=== PATIENT | male | born 1980 | race Caucasian/White ===

== ENCOUNTER 2018-05-28 13:41 | Emergency (ER) | payer OTHER ==
[2018-05-28 13:50] VITALS: BP 152/100
--- NOTE | 2018-05-28 14:09 | ED Physician Documentation ---
PD HPI UPPER EXT INJURY - Stated complaint Stated Complaint: L THUMB INJ - Chief complaint Chief Complaint: Ext Problem - History obtained from History obtained from: Patient - History of Present Illness Location: Left, Finger (thumb) Type of injury: Blunt / blow Where injury occurred: Other (playing football) Timing - onset: Last night Worsened by: Moving, Palpating Associated symptoms: Swelling. No: Weakness, Numbness Similar symptoms before: Has not had sx before - Additonal information Additional information: The patient is a 37-year-old male who jammed his left thumb while playing football last night. He denies any other injuries. He is right-hand dominant. Review of Systems Constitutional: denies: Fever Respiratory: denies: Dyspnea GI: denies: Nausea, Vomiting Skin: denies: Abrasion (s), Laceration (s) Musculoskeletal: reports: Extremity pain (left thumb). denies: Neck pain, Back pain Neurologic: denies: Focal weakness, Numbness PD PAST MEDICAL HISTORY - Past Medical History Past Medical History: No Cardiovascular: None Respiratory: Other Endocrine/Autoimmune: None GI: None : None HEENT: None Psych: None Musculoskeletal: Other Derm: None - Past Surgical History Past Surgical History: Yes Ortho: Arthroscopic surgery - Present Medications Home Medications: Ambulatory Orders Medication Instructions Recorded Confirmed Ibuprofen 600 mg PO ONCE 05/28/18 05/28/18 - Allergies Allergies/Adverse Reactions: Allergies Allergy/AdvReac Type Severity Reaction Status Date / Time No Known Drug Allergies Allergy Verified 04/05/13 19:06 - Social History Does the pt smoke?: No Smoking Status: Never smoker Does the pt drink ETOH?: Yes Does the pt have substance abuse?: No - Immunizations Immunizations are current?: Yes PD ED PE NORMAL - Vitals Vital signs reviewed: Yes (hypertensive) - General General: Alert and oriented X 3, Well developed/nourished - HEENT HEENT: Atraumatic - Respiratory Respiratory: No respiratory distress - Derm Derm: No rash - Extremities Extremities: Other (Swelling and tenderness to palpation at the base of the left thumb, particularly at the MCP joint and the thenar eminence. Distal neurovascular is intact. There is no break in the integument.) - Neuro Neuro: Alert and oriented X 3, No motor deficit, No sensory deficit Results - Vitals Vitals: Vital Signs - 24 hr 05/28/18 13:47 Temperature 36.5 C Heart Rate 79 Respiratory 18 Rate Blood Pressure 152/100 H O2 Saturation 96 Oxygen O2 Source Room air - Rads (name of study) left thumb Radiology: Prelim report reviewed, EMP read contemporaneously, See rad report (First proximal phalangeal avulsion fracture (gamekeeper's thumb).) Procedures - Splint (location) left thumb Splint applied by: Tech Type of splint: Prefab velcro wrist (Velcro thumb spica) Other: Patient tolerated well, No complications, Neurovascular intact PD MEDICAL DECISION MAKING - ED course Complexity details: reviewed results, re-evaluated patient, considered differential, d/w patient ED course: The patient's presentation is significant for gamekeeper's thumb involving the proximal portion of the first phalanx of the left thumb. Treatment in the emergency department included application of a Velcro thumb spica splint. I discussed with him the expected course of injury, symptomatic treatment and outpatient follow-up, as well as potentially worrisome signs or symptoms that should prompt reevaluation in the emergency department. Departure - Departure Disposition: 01 Home, Self Care Clinical Impression: Gamekeeper's thumb of left hand Qualifiers: Encounter type: initial encounter Qualified Code(s): S53.32XA - Traumatic rupture of left ulnar collateral ligament, initial encounter Condition: Stable Instructions: ED Fx Thumb Follow-Up: Michael Gatica MD [Primary Care Provider] - Comments: Keep your left hand elevated as much the time as possible. Use the thumb spica splint, which you can remove when showering. You can use ibuprofen, up to 800 mg 3 times daily for anti-inflammatory effect. Let pain be your guide to activity level. Follow-up with your primary physician within 1 week. Call to schedule appointment. Return to the emergency department if you develop markedly increasing pain or swelling, or otherwise worsening symptoms. Discharge Date/Time: 05/28/18 15:37
--- NOTE | 2018-05-28 15:21 | XRAY Report ---
Reason: left thumb injury Procedure Date: 05/28/2018 Accession Number: [id number] / [id number] Procedure: XR - Finger(s) LT CPT Code: FULL RESULT: EXAM: LEFT FIRST DIGIT RADIOGRAPHY EXAM DATE: 05/28/2018 02:45 PM. CLINICAL HISTORY: Trauma, pain. COMPARISON: None. TECHNIQUE: 3 views. FINDINGS: Bones: Small fracture fragment with adjacent donor site in the ulnar corner of the base of first proximal phalanx. Otherwise unremarkable. Joints: Normal. No subluxations. Soft Tissues: Soft tissue swelling. IMPRESSION: First proximal phalangeal avulsion fracture (gamekeepers thumb). [facility]
== END 2018-05-28 15:37 | disposition home or self-care (01) ==
LOC: ED 13:41
DX: S63.418A Traumatic rupture of collateral ligament of other finger at metacarpophalangeal and interphalangeal joint, initial encounter (principal); Y93.61 Activity, american tackle football
CPT/HCPCS: 29125; 73140; 99283

== ENCOUNTER 2018-06-25 07:41 | Outpatient (CLI) | payer OTHER ==
--- NOTE | 2018-06-25 13:29 | MRI Report ---
Reason: TRAUMATIC RUPTURE OF UNSPECIFIED ULNAR COLLATERAL Procedure Date: 06/25/2018 Accession Number: [id number] / [id number] Procedure: MRI - Finger(s) LT W/O CPT Code: 84195 FULL RESULT: EXAM: LEFT Thumb MRI Without Contrast EXAM DATE: 06/25/2018 08:43 AM. CLINICAL HISTORY: Traumatic rupture of unspecified ulnar collateral. COMPARISON: Radiographs 05/28/2018. TECHNIQUE: Multiplanar, multisequence T1-weighted and fluid-sensitive sequences of the thumb without contrast. Other: None. FINDINGS: Bones: Contusion versus subtle impaction fracture at the volar and radial aspect first metacarpal head. Subtle bone marrow edema at the ulnar aspect first proximal phalanx, likely reactive. Cartilage: Shallow partial-thickness cartilage loss first metacarpophalangeal joint. Shallow partial-thickness loss and cystic changes partially visualized at the first carpometacarpal joint. Ligaments: Moderate thickening and mild edema in the ulnar collateral ligament first metacarpophalangeal joint. Deep partial-thickness tear at the distal insertion. Some fibers appear intact. Mild edema at the radial collateral ligament first metacarpophalangeal joint. Possible subtle undersurface tear at the distal insertion. Tendons: The flexor and extensor tendons are intact. Subtle edema deep to the insertion extensor pollicis brevis tendon at the proximal phalanx base. The adductor pollicis insertion is mildly edematous although intact. Musculature: No fatty atrophy. Minimal edema in the musculature adjacent to the first metacarpophalangeal joint. Other: Minimal joint effusion first metacarpophalangeal joint. Mild subcutaneous edema over the dorsal and ulnar aspect first metacarpophalangeal joint. IMPRESSION: 1. Moderate strain and high-grade partial-thickness tearing ulnar collateral ligament of the first metacarpophalangeal joint. No full-thickness disruption. 2. Mild reactive edema versus strain at the adductor aponeurosis. 3. Mild reactive edema versus strain at the radial collateral ligament of the first metacarpophalangeal joint. 4. Minimal joint effusion at the first metacarpophalangeal joint. 5. Reactive edema versus strain or partial-thickness tearing at the insertion extensor pollicis brevis tendon. 6. Bone contusion versus subtle impaction fracture at the radial aspect first metacarpal head. [facility] MUSCULOSKELETAL RADIOLOGY SECTION
== END 2018-06-25 07:42 | disposition home or self-care (01) ==
LOC: DI 07:41
PROVIDERS: ATTEND Orthopaedic Surgery
DX: S53.32XA Traumatic rupture of left ulnar collateral ligament, initial encounter (principal); S63.642A Sprain of metacarpophalangeal joint of left thumb, initial encounter; S66.912A Strain of unspecified muscle, fascia and tendon at wrist and hand level, left hand, initial encounter; S60.012A Contusion of left thumb without damage to nail, initial encounter

== ENCOUNTER 2020-10-11 10:17 | Outpatient (CLI) | payer OTHER ==
[2020-10-13 21:09] VITALS: BP 140/104
--- NOTE | 2020-10-13 21:09 | SLEEP CARE CONSULTATION ---
Information from patient questionnaire entered by Ana Wilson. I have reviewed and concur with the information entered by Ana Wilson. This document represents the service I personally performed and the decisions made by me, Karen White MD, [facility]. History of Present Illness Service Date and Time: 10/11/2020 1017 Reason for Visit: New patient, Previously diagnosed sleep apnea (moderate - AHI - 23.3), sleep apnea on CPAP therapy ([facility]) Chief Complaint: reports: Other (sleep study) Date of Onset: 15 years Usual bedtime: 9:30 pm Time it takes to fall asleep: 20 minutes Snores at night: Yes Observed to quit breathing while asleep: Yes Sleeps alone due to snoring: No Number of times waking at night: 1 Reasons for waking at night: reports: Snoring, Bathroom Toss, Turn, or Twitch while sleeping: Yes Recalls having dreams: No Usually gets out of bed at: 4:30 am Feels refreshed in the morning: Yes Morning headache: No Sleepy or fatigued during the day: Yes Ever fallen asleep while driving: No Takes day naps: No Dreams during day naps: No Prior sleep studies: Yes Year and Where: 2012 - [facility] Type of Sleep Study: Polysomnography Additional HPI information: I had the pleasure of seeing Mr. Ragland today regarding obstructive sleep apnea-hypopnea. As you know, he is a 39 year old gentleman who was diagnosed with the sleep-disordered breathing at the [facility] in 2012. The AHI was 23.3. He was prescribed a CPAP device set at 11 cmH2O. He uses the Respironics DreamStation auto device every night and all night. The compliance data show usage in 29 out of the past 30 nights, averaging 5.1 hours a night. The residual AHI is 3.3 and average time in large leak per day is 23 minutes. He wears a ResMed full face mask. He gets his supplies from [facility] in [place]. He finds the treatment very beneficial. [place] Sleepiness Scale score is 10. - Parasomnia Symptoms Ever been unable to move upon waking from sleep: No Ever felt weak in the knees when startled or emotional: No Bothered by creepy, crawly, restless sensations in legs: No Problems with memory or concentration: Yes CPAP Compliance Data - Data Reviewed with Patient Average duration of nightly device use: 5 hr 7 min Compliance rate %: 66.7 (last 30)(55 for 180 days) Current pressure setting (cmH2O): 11 Humidity settin Heated hose settin Average residual AHI: 3.3 Average large leak: 23 min 8 sec Subjective Initial [place] Sleepiness Scale score: 10 (in 2020) Past Medical History Past Medical History: reports: Hypertension Social History 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 Patient is and lives in [place]. Have you smoked in the past 12 months: No Alcohol use: Yes Alcohol amount and frequency: 2 drinks 3-4 times a week Caffeine use: Yes Caffeine amount and frequency: 3-4 cups of coffee Family History Family history of sleep disordered breathing: No Allergies and Home Medications Drug allergies reviewed: Yes Home medication list reviewed: Yes (HCTZ) Review of Systems Cardiovascular: reports: high blood pressure Respiratory: denies: shortness of breath, wheeze, sputum production, chronic cough, other Gastrointestinal: denies: heartburn, difficulty swallowing, nausea, vomitting, diarrhea, abdominal pain, other Urinary: denies: incontinence, frequency, urgency, impotence, other Neurological: denies: headaches, seizure, head trauma, disorientation, speech dysfunction, gait or balance problems, fainting or unconsciousness, other Psychiatric: denies: Attention Deficit Hyperactivity, anxiety, depression, mood disorder, claustrophobia, other Ear/Nose/Throat: denies: nasal congestion, sinus problems, nose bleeds, dry mouth/throat, hoarseness, injury to nose, tonsillectomy, wisdom teeth removed, other Endocrine: denies: thyroid disease, history of goiter, sluggishness, too hot or cold, excessive thirst, increased appetite, increased urination, unexplained weakness, other Musculoskeletal: denies: joint pain, neck pain, back pain, joint swelling, muscle pain or cramping, mobility problems, other Immunologic: denies: sneezing, rash, itching, allergies to food or environment, other Physical Exam Blood Pressure: 140/104 Heart Rate: 65 O2 Saturation: 100 Height: 6 ft 2 in Weight: 255 lb Body Mass Index: 32.7 BMI Classification: Obese Neck circumference: 17.5 Impression and Plan IMPRESSION: 1. Obstructive Sleep Apnea-Hypopnea Syndrome, moderate, as previously diagnosed. He has good treatment compliance. The current pressure setting appears effective and comfortable. I will prescribe him more supplies through [facility] in [place]. I showed him newer full face masks. Because he still snores occasionally at home, I will raise the pressure a little. Plan: 1. Prescription made for CPAP supplies. 2. Set the Respironics DreamStation as autoCPAP with pressure range 9 14 cmH 2O. 3. Avoid alcohol, sedative and muscle relaxant around bedtime. 4. Attempt to lose weight. 5. Return for follow up in a year or earlier if there is any problem. Follow up recommended for: Weight management Visit Type: In Office Time Spent with Patient (minutes): 15 Provider Statement: I spent 100% of the Face to Face Visit with the patient with greater than 50% spent counseling the patient and coordination of care.
== END 2020-10-11 10:18 | disposition home or self-care (01) ==
LOC: SC 10:17
PROVIDERS: ATTEND Internal Medicine Pulmonary Disease
DX: G47.33 Obstructive sleep apnea (adult) (pediatric) (principal); E66.9 Obesity, unspecified; Z68.32 Body mass index [BMI] 32.0-32.9, adult
CPT/HCPCS: 99202; 99212

== ENCOUNTER 2021-11-21 09:04 | Outpatient (CLI) | payer OTHER ==
[2021-11-21 09:38] VITALS: BP 138/88
--- NOTE | 2021-11-21 09:38 | SLEEP CARE CONSULTATION ---
Information from patient questionnaire entered by Nel Doyle. I have reviewed and concur with the information entered by Nel Doyle. This document represents the service I personally performed and the decisions made by me, aKren White MD, [facility]. History of Present Illness Service Date and Time: 11/21/2021 0904 Reason for follow up: annual (LAST SEEN 10/11/2020) Prior sleep studies: Yes Year and Where: 2012 - [facility] Type of Sleep Study: Polysomnography HPI additional information: Mr. Ragland today regarding obstructive sleep apnea-hypopnea. As you know, he is a 39-year-old gentleman who was diagnosed with the sleep-disordered breathing at the [facility] in 2012. The AHI was 23.3. He returns today for an annual follow up of CPAP therapy. The patient purchased the device from [place] [facility] and was fitted with a full face mask. He uses the device nightly and all through the night. The compliance report shows that he uses the device 301 nights out of the past 365 nights, averaging 3.7 hours a night. He complains of no particular problem with the device such as soreness on the face, dry nose, epistaxis, nasal congestion or headache. He thinks that the pressure of 12 - 15 cmH2O is too low (it was raised once already). On the CPAP therapy he notices improvement in his sleep quality, and that he wakes up feeling fres her in the morning and more awake/alert during the day. His notices no snore at all. [place] Sleepiness Scale score is 16. The average residual AHI is 1.9; and average time in large leak per day is 24 minutes a night. The 90th percentile pressure is 13 cmH2O. Sleep Study - Results Type of Sleep Study: Polysomnography Prior sleep studies: Yes Year and Where: 2012 - [facility] Subjective Initial [place] Sleepiness Scale score: 10 (in 2020) Allergies and Home Medications Drug allergies reviewed: Yes Home medication list reviewed: Yes Allergy and home medication list: Allergies No Known Drug Allergies Allergy (Verified 09/24/19 16:14) Review of Systems Review of systems same as previous: Yes Physical Exam Vital signs obtained and entered by: Chino DOYLE MA Blood Pressure: 138/88 (MANUAL BP) Cuff size: regular O2 Saturation: 97 Height: 6 ft 2 in Weight: 576 lb 4.613 oz Body Mass Index: 74.0 BMI Classification: Morbidly Obese Impression and Plan IMPRESSION: 1. Obstructive Sleep Apnea-Hypopnea Syndrome, moderate, with the patient continuing to do well on nasal CPAP therapy. He has [id number] compliance but significant clinical benefits. The current pressure appears effective but slightly uncomfortable. Overall, he is very satisfied with treatment and plans to continue with it long-term. I will raise the pressure further for his comfort. He will watch for the air leak which might increase due to the higher pressure. PLAN: 1. AutoCPAP set to 14 - 17 cm H2O. 2. Prescription made for supplies and sent to [facility]. 3. Return in one year for follow up or earlier if there is any problem with the treatment. Prescriptions: Device supplies Follow up with Sleep Care in: 1 year Visit Type: In Office Time Spent with Patient (minutes): 15 Provider Statement: I spent 100% of the Face to Face Visit with the patient with greater than 50% spent counseling the patient and coordination of care.
== END 2021-11-21 09:05 | disposition home or self-care (01) ==
LOC: SC 09:04
PROVIDERS: ATTEND Internal Medicine Pulmonary Disease
DX: G47.33 Obstructive sleep apnea (adult) (pediatric) (principal); E66.01 Morbid (severe) obesity due to excess calories; Z68.45 Body mass index [BMI] 70 or greater, adult
CPT/HCPCS: 99212

== ENCOUNTER 2023-04-02 10:53 | Outpatient (CLI) | payer OTHER ==
--- NOTE | 2023-04-02 12:44 | SLEEP CARE CONSULTATION ---
Information from patient questionnaire entered by Nati Alvarado. I have reviewed and concur with the information entered by Nati Alvarado. This document represents the service I personally performed and the decisions made by me, Karen White MD, [facility]. History of Present Illness Service Date and Time: 04/02/2023 1053 Reason for follow up: annual (LAST SEEN 11/2021) Equipment type: CPAP (DREAMSTATION SD CARD NEEDED) Prior sleep studies: Yes Year and Where: 2012 - [facility] Type of Sleep Study: Polysomnography HPI additional information: Mr. Ragland today regarding obstructive sleep apnea-hypopnea. He is a 39-year-old gentleman who was diagnosed with the sleep-disordered breathing at the [facility] in 2012. The AHI was 23.3. He returns today for an annual follow up of CPAP therapy. The patient purchased the [employer] Respironics DreamStation autoCPAP from [place] [facility] and was fitted with a full face mask. The machine is 4 years old. He uses the device nightly and all through the night. The compliance report shows that he uses the device 95 nights out of the past 180 nights, averaging 2.1 hours a night. He complains of no particular problem with the device such as soreness on the face, dry nose, epistaxis, nasal congestion or headache. He thinks that the pressure of 12 - 15 cmH2O is too low (it was raised once already). On the CPAP therapy he notices improvement in his sleep quality, and that he wakes up feeling fresher in the morning and more awake/alert during the day. He still snores through the CPAP, according to his . [place] Sleepiness Scale score is 20. The average residual AHI is 2.4; and average time in large leak per day is 8 minutes a night. The 90th percentile pressure is 13.9 cmH2O. Sleep Study - Results Type of Sleep Study: Polysomnography Prior sleep studies: Yes Year and Where: 2012 - [facility] Subjective Initial [place] Sleepiness Scale score: 10 (in 2020) Current [place] Sleepiness Scale score: 20 (04/02/23) Allergies and Home Medications Drug allergies reviewed: Yes Home medication list reviewed: Yes Allergy and home medication list: Allergies No Known Drug Allergies Allergy (Verified 03/30/23 15:19) Review of Systems Review of systems same as previous: Yes Physical Exam Vital signs obtained and entered by: NATI Hoover MA Blood Pressure: 122/70 (LEFT ARM) Cuff size: regular Heart Rate: 81 O2 Saturation: 98 Height: 6 ft 1 in Weight: 249 lb 6.4 oz Body Mass Index: 32.9 BMI Classification: Obese Impression and Plan IMPRESSION: 1. Obstructive Sleep Apnea-Hypopnea Syndrome, moderate, with the patient not using his CPAP much after he contracted COVID last year. 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 He still snores when not wearing his CPAP. He would like to be retested to see if still has obstructive sleep apnea-hypopnea. Because he feels like he is not getting enough air, I will raise the pressure range a little. PLAN: 1. AutoCPAP raised to 14 - 17 cm H2O. 2. Prescription made for supplies and sent to [facility]. 3. Order an in-laboratory polysomnography. He is to not use his CPAP one night before the sleep study. 4. Return for follow up after the sleep study. Prescriptions: Device supplies Follow up with Sleep Care in: 1-2 months Plan: in-lab PSG Visit Type: In Office Time Spent with Patient (minutes): 15 Provider Statement: I spent 100% of the Face to Face Visit with the patient with greater than 50% spent counseling the patient and coordination of care.
[2023-04-02 12:46] VITALS: BP 122/70; O2SAT 98
== END 2023-04-02 10:54 | disposition home or self-care (01) ==
LOC: SC 10:53
PROVIDERS: ATTEND Internal Medicine Pulmonary Disease
DX: G47.33 Obstructive sleep apnea (adult) (pediatric) (principal); E66.9 Obesity, unspecified; Z68.32 Body mass index [BMI] 32.0-32.9, adult
CPT/HCPCS: 99212

== ENCOUNTER 2023-04-22 19:34 | Outpatient (CLI) | payer OTHER | END 2023-04-22 19:35 | disposition home or self-care (01) | LOC: SC 19:34 | PROVIDERS: ATTEND Nurse Practitioner Family | DX: G47.33 Obstructive sleep apnea (adult) (pediatric) (principal) | CPT/HCPCS: 95810 ==

== ENCOUNTER 2023-05-18 14:08 | Outpatient (CLI) | payer OTHER ==
--- NOTE | 2023-05-18 11:51 | SLEEP CARE CONSULTATION ---
Information from patient questionnaire entered by Rehana Alvarado. I have reviewed and concur with the information entered by Rehana Alvarado. This document represents the service I personally performed and the decisions made by , Suyapa Walker ARNP. History of Present Illness Service Date and Time: 05/18/2023 1140 Initial [place] Sleepiness Scale score: 10 (in 2020) Current [place] Sleepiness Scale score: 13 (05/18/23) Additional HPI information: MARINO LAIRD returns via video telehealth visit for follow up and results of the recently performed polysomnography. The sleep study showed moderate obstructive sleep apnea with an average AHI of 19.7 and pamela oxygen saturation of 79%. I explained the pathophysiology behind obstructive sleep apnea. We then spent quite a bit of time discussing different treatment options. For mild obstructive sleep apnea, surgery and oral appliance are alternatives to nasal CPAP therapy but in moderate or severe cases, nasal CPAP is the most effective and reliable treatment. Patient currently on nasal CPAP therapy set at 14-17 cmH20. After some discussion, patient decides to continue with his CPAP therapy as recommended to control his sleep apnea. Patient counseled not drink alcohol less than 4 hours before bedtime as it can increase snoring and apnea. Patient was cautioned about risks of drowsy driving until sleepiness symptoms resolve. Patient denies drowsy driving. Sleep Study - Results Type of Sleep Study: Polysomnography (COMPLETED 04/22/23) Prior sleep studies: Yes Year and Where: 2012 - [facility] Polysomnography/Home Sleep Study results: IMPRESSION: The quality of the study is good. The patient had normal sleep efficiency. The sleep architecture was abnormal for sleep fragmentation and reduced amount of time spent in slow wave sleep (N3). Respiratory monitoring showed moderate obstructive sleep apnea-hypopnea (AHI = 19.7) associated with frequent arousals, oxyhemoglobin desaturation and moderate hypoxia (pamela oxygen saturation of 79 %). The respiratory events occurred only during supine sleep (supine AHI = 38.9; non-supine = 0.00). Snore was moderate to loud in intensity. There was no significant periodic leg movement of sleep. Cardiac rhythm was normal sinus rhythm without significant arrhythmia. No abnormal behavior (parasomnia) observed during the night. Allergies and Home Medications Known drug allergies: No Drug allergies reviewed: Yes Home medication list reviewed: Yes (no changes) Allergy and home medication list: Allergies No Known Drug Allergies Allergy (Verified 05/17/23 12:45) Review of Systems Review of systems same as previous: Yes (NO CHANGE) Physical Exam Vital signs obtained and entered by: REHANA Hoover MA Height: 6 ft 2 in (PER PT) Weight: 255 lb (PER PT) Body Mass Index: 32.7 BMI Classification: Obese Impression and Plan 1. Obstructive Sleep Apnea-Hypopnea Syndrome, moderate, with pamela oxygen saturation of 79%. Patient returns today after verifying sleep study. He continues to have moderate obstructive sleep apnea with moderate hypoxemia without use of his CPAP. I recommend he continue with his CPAP current settings of 14-17 cm H2O. He states he has not been using his machine regularly but since the pressure change it is more comfortable and he is using it more overall. I will have him come in for a compliance check in 1-2 months. Patient's apnea severity and rationale for treatment to reduce apnea, improve sleep quality and reduce cardiovascular and cerebrovascular events was reviewed. I also reviewed the benefit of consistent device use of CPAP for hypertension. 2. Hypoxemia, moderate, with a pamela oxygen saturation of 79% and 6.4 minutes spent under 90%. The baseline oxygen saturation was normal with an average oxygen saturation of 93%. 3. Obesity, unspecified. Currently patients BMI is 32.7. Obesity increases the risk of apnea, CPAP pressure requirements and overall health risks especially cardiovascular and diabetes. Thus patient is advised to lose weight. * Continue auto CPAP pressure at 14-17 cmH2O * Notify me if snoring with mask or feeling that the pressure is too much or too little * Attempt to lose weight * Call this office if any problems using CPAP * Return for follow up in 1-2 months, or sooner if concerns arise Counseling Topics: Weight loss health impact Follow up with Sleep Care in: 1-2 months Visit Type: Telehealth Video Video Type: Doximity Patient Location: Home Location of Provider: Office Patient agrees and consents to this telehealth visit type: Yes Patient agrees to have their insurance billed: Yes Time Spent with Patient (minutes): 11 Provider Statement: I spent 100% of the Telehealth Video Call with the patient with greater than 50% spent counseling the patient and coordination of care.
== END 2023-05-18 14:09 | disposition home or self-care (01) ==
LOC: SC 14:08
PROVIDERS: ATTEND Nurse Practitioner Family
DX: G47.33 Obstructive sleep apnea (adult) (pediatric) (principal); R09.02 Hypoxemia; E66.9 Obesity, unspecified; Z68.32 Body mass index [BMI] 32.0-32.9, adult

== ENCOUNTER 2023-10-18 07:02 | Emergency (ER) | payer OTHER ==
[2023-10-18 07:25] VITALS: BP 130/85; O2SAT 99
--- NOTE | 2023-10-18 08:54 | ED Physician Documentation ---
PD HPI URI - Stated complaint Stated Complaint: LT EAR ACHE - Chief complaint Chief Complaint: Heent - History obtained from History obtained from: Patient - History of Present Illness Timing - onset: How many days ago (few) Timing duration: Days (2-3) Timing details: Gradual onset, Still present Associated symptoms: Ear pain, Nasal congestion (had recent URI with still some congestion but now 2-3 days of increasing to now severe left ear pain and distorted hearing. No bleeding nor drainage.). No: Fever, Chills, Sore throat, Dry cough Contributing factors: No: Sick contact, Immunocompromised Similar symptoms before: Diagnosis (has had prior ear infections in past few ye ars as adult and had when younger. Has had TM reupture couple of times.) Review of Systems Constitutional: denies: Fever, Chills Ears: reports: Ear pain. denies: Drainage/discharge Nose: reports: Congestion, Sinus pressure / pain. denies: Rhinorrhea / runny nose Throat: denies: Sore throat Respiratory: denies: Cough PD PAST MEDICAL HISTORY - Past Medical History Past Medical History: Yes Cardiovascular: None Respiratory: Other Endocrine/Autoimmune: None GI: None : None HEENT: None Psych: None Musculoskeletal: Other Derm: None - Past Surgical History Past Surgical History: Yes Ortho: Arthroscopic surgery - Present Medications Home Medications: Ambulatory Orders Medication Instructions Recorded Confirmed Buspirone HCl See Rx Instructions .ROUTE .COMPLEX 04/02/23 10/18/23 Lisinopril [Zestril] See Rx Instructions .ROUTE .COMPLEX 04/02/23 10/18/23 hydroCHLOROthiazide [Hydrodiuril] See Rx Instructions .ROUTE .COMPLEX 04/02/23 10/18/23 Amoxicillin 500 mg PO TID #21 cap 10/18/23 Cetirizine [ZyrTEC] 10 mg PO DAILY #15 tablet 10/18/23 Fluticasone [Flonase] 2 sprays TITUS BID PRN 30 Days #16 gm 10/18/23 - Allergies Allergies/Adverse Reactions: Allergies Allergy/AdvReac Type Severity Reaction Status Date / Time No Known Drug Allergies Allergy Verified 10/18/23 07:16 - Social History Does the pt smoke?: No Smoking Status: Never smoker Does the pt drink ETOH?: Yes Does the pt have substance abuse?: No - Immunizations Immunizations are current?: Yes - POLST Patient has POLST: No PD ED PE NORMAL - Vitals Vital signs reviewed: Yes - General General: Alert and oriented X 3, No acute distress, Well developed/nourished - HEENT HEENT: No: Ears normal (right is normal. Left canal is okay and no tenderness in mastoid area to percussion. Left TM with marked redness and some moderate or more fluid behind. No signs of rupture nor leakage. ) Results - Vitals Vitals: Oxygen O2 Source Room air PD Medical Decision Making - ED course Complexity details: considered differential (recent URI with now otitis media and pain. No current signs of rupture. ), d/w patient Departure - Departure Disposition: 01 Home, Self Care Clinical Impression: Left ear pain, Otitis media Condition: Stable Record reviewed to determine appropriate education?: Yes Instructions: ED Otitis Media Acute Adult Follow-Up: [facility] Angel Reddy [Provider Group] Prescriptions: Amoxicillin 500 mg PO TID #21 cap Fluticasone [Flonase] 2 sprays TITUS BID PRN 30 Days #16 gm PRN Reason: Nasal Congestion Cetirizine [ZyrTEC] 10 mg PO DAILY #15 tablet Comments: Your eardrum does look very pressurized with the redness and swelling. This is consistent with the middle ear infection. We can go with amoxicillin antibiotic for the infection. This results from improper drainage to the eustachian tube and trapped fluid so also medications to help with decreased fluid and inflammation. I wrote prescriptions for cetirizine twice daily for the next week to 10 days. Also fluticasone nasal spray which is a steroid for the inflammation through the sinus opening and opening for the eustachian tube. You are given a dose of a steroid medicine orally here to help with inflammation throughout the eustachian tube initially. I sent your prescriptions to the [facility] pharmacy. Tylenol and/or ibuprofen if needed for pains. Recheck if not improving well over the next couple of days and resolved by 3 to 5 days. Forms: PCP List Discharge Date/Time: 10/18/23 09:05
[2023-10-18] MEDS: ACETAMINOPHEN 500 MG TABLET PO STA (09:04)
[2023-10-18] MEDS: dexAMETHasone 4 MG TABLET PO STA (09:05)
[2023-10-18] MEDS: AMOXICILLIN 250 MG CAPSULE PO STA (09:05)
== END 2023-10-18 09:05 | disposition home or self-care (01) ==
LOC: ED 07:02
DX: H66.92 Otitis media, unspecified, left ear (principal)
CPT/HCPCS: 99282; 99283